=== PATIENT | female | born 1950 | race Caucasian/White ===

== ENCOUNTER → 2016-07-01 | Outpatient (CLI) | payer MEDICARE ==
[2016-07-01 15:12] VITALS: BP 149/70; PULSE 87; TEMP 98.2
--- NOTE | 2016-07-01 15:24 | P.HPBAR ---
Bariatric H&P - History & Physicial H&P Date: 07/01/16 History & Physicial: Visit/CC: initial visit Patient initial contact: Initial weight: Initial weight in pounds: Height: 5 ft 4 in Initial BMI: Last weight: Current weight: 131.134 kg Current weight in pounds: Current BMI: Brickeys body weight (based on NIH guidelines): 54.431 kg Excess body weight loss: The patient is a 66 year-old F who presents for Bariatric Assessment. The patient apparently underwent laparoscopic banding by Dr. Garcia in 2004. She is not interested in following with him at this point. Her weight prior to lap band was about the same as it is now. She felt that she was never able to achieve adequate restriction. She felt that she was always either too tight or too loose. Her band is currently empty. She has had troubles in the past with pouch dilation but never had any surgical revisions. She denies any DVT or dysphagia in the past. The patient suffers from chronic back pain and chronic foot pain shortness of breath lymphedema GERD hypercholesterolemia and questionable COPD. She has had for close family members that had the gastric bypass and done well. She is undecided about whether she wants to convert from band sleeve or band to bypass. She lives in [place]. She would prefer to have the conversion done in one surgery. Review of Systems The patient denies any acute changes in his vision or hearing, no dysphagia or odynophagia, no chest pain, no dysuria or hematuria, no headache, no runny nose , no rectal bleeding or melena, no unexplained weight loss Past Medical History Past Medical History: Asthma, GERD/Reflux, Hyperlipidemia, Osteoarthritis (OA) History of Any Multi-Drug Resistant Organisms: None Reported Past Surgical History: Bariatric Surgery, Cholecystectomy Additional Past Surgical History / Comment(s): gastric band 2005 Past Anesthesia/Blood Transfusion Reactions: Postoperative Nausea & Vomiting ( PONV) Past Psychological History: Anxiety, Depression Smoking Status: Never smoker Past Alcohol Use History: None Reported Past Drug Use History: None Reported Surgical - Exam Vital Signs Temp Pulse BP 98.2 F 87 149/70 07/01/16 15:01 07/01/16 15:01 07/01/16 15:01 Physical exam: General: Well-developed, well-nourished HEENT: Normocephalic, sclerae nonicteric Abdomen: Nontender, nondistended Extremities: No edema Neuro: Alert and oriented Bariatric Assessment & Plan (1) Morbid obesity Narrative/Plan: The surgical options were discussed in detail with the patient today. She plans to come to an upcoming bariatric seminar. She will further investigate the gastric bypass and gastric sleeve. Anticipate conversion in the near future. Status: Acute Bariatric Checklist Checklist: Plan: Checklist: EGD: 1. Hiatal hernia: 2. H. Pylori: HgbA1c: Vitamin D: Smoking: Never smoker Primary care physician referral: Psychiatry clearance: Cardiology clearance: Sleep study: Diet journal: VTE risk score: VTE risk level: Rehab needs at discharge:
== END | disposition home or self-care (01) ==
LOC: BARWHC3 14:09
PROVIDERS: ATTEND Surgery
DX: Z01.818 Encounter for other preprocedural examination (principal); E66.01 Morbid (severe) obesity due to excess calories; Z98.84 Bariatric surgery status
CPT/HCPCS: 99211